=== PATIENT | female | born 1960 | race African-American/Black ===

== ENCOUNTER 2018-02-03 23:40 | Emergency (ER) | payer BC ==
[~2018-02-03] VITALS: Ht 177.8 cm; Wt 102.0 kg
[~2018-02-03 23:40] MED LIST: DIAZIDE
[2018-02-04] MEDS ORDERED: MORPHINE SULFATE 4 MG/ML CPJ (NOT FOR IM USE) IV ONE ×2 (00:30→02:15)
[2018-02-04] MEDS ORDERED: LIDOCAINE HCL 1% 20ML VIAL (Pyxis) INJ INFIL ONE (02:15)
[2018-02-04 04:35] VITALS: BP 153/79
[2018-02-16] MEDS ORDERED: LISI40TA4 MT (23:00)
[2018-02-16] MEDS ORDERED: LETR2.5T6 MT (23:00)
== END 2018-02-04 04:36 | disposition home or self-care (01) ==
LOC: ER 02-04 01:07
DX: S82.452A Displaced comminuted fracture of shaft of left fibula, initial encounter for closed fracture (principal); S82.392A Other fracture of lower end of left tibia, initial encounter for closed fracture; V48.4XXA Person boarding or alighting a car injured in noncollision transport accident, initial encounter; Y93.89 Activity, other specified; Y92.89 Other specified places as the place of occurrence of the external cause; I10 Essential (primary) hypertension; Z85.3 Personal history of malignant neoplasm of breast; Z90.13 Acquired absence of bilateral breasts and nipples
CPT/HCPCS: 27840; 73610; 73630; 96374; 96376; 99284; J2270; J3490

== ENCOUNTER → 2018-02-08 | Outpatient (CLI) | payer BC ==
[~2018-02-08] MED LIST changes: +BACITRACIN 50,000 UNITS/VIAL ONE; +BUPIVACAINE HCL/DEXTROSE/PF 0.75% 2ML AMP INJ ONE; +BUPIVACAINE HCL/PF 0.25% (2.5MG/ML) 10ML ONE; +LETR2.5T6 MT; +LISI40TA4 MT; +NORMAL SALINE 0.9% 10 ML SYR ONE; +PROPOFOL 10MG/ML 100ML 100 ML IV ONE; +ROPIVACAINE HCL 10MG/ML 20 ML VIAL EPI ONE
== END | disposition home or self-care (01) ==
LOC: RAD 15:12
PROVIDERS: ATTEND Orthopaedic Surgery
DX: S82.892A Other fracture of left lower leg, initial encounter for closed fracture (principal); X58.XXXA Exposure to other specified factors, initial encounter; Y93.89 Activity, other specified; Y92.89 Other specified places as the place of occurrence of the external cause; Y99.8 Other external cause status
CPT/HCPCS: 73610

== ENCOUNTER → 2018-04-12 | Outpatient (CLI) | payer BC ==
[~2018-04-12] MED LIST changes: -BACITRACIN 50,000 UNITS/VIAL ONE; -BUPIVACAINE HCL/DEXTROSE/PF 0.75% 2ML AMP INJ ONE; -BUPIVACAINE HCL/PF 0.25% (2.5MG/ML) 10ML ONE; -NORMAL SALINE 0.9% 10 ML SYR ONE; -PROPOFOL 10MG/ML 100ML 100 ML IV ONE; -ROPIVACAINE HCL 10MG/ML 20 ML VIAL EPI ONE
== END | disposition home or self-care (01) ==
LOC: RAD 10:46
PROVIDERS: ATTEND Orthopaedic Surgery
DX: S82.845D Nondisplaced bimalleolar fracture of left lower leg, subsequent encounter for closed fracture with routine healing (principal); M25.772 Osteophyte, left ankle; X58.XXXD Exposure to other specified factors, subsequent encounter
CPT/HCPCS: 73610

== ENCOUNTER → 2018-04-30 | Outpatient (CLI) | payer BC ==
[2018-04-30 14:55] LABS: HEMATOCRIT. 39.3 % (36.0-48.0); HEMOGLOBIN. 12.9 g/dL (12.0-16.0); MEAN CORPUSCULAR HEMOGLOBIN 30.8 pg (28.0-32.0); MEAN CORPUSCULAR VOLUME 93.7 fL (81.0-99.0); MEAN PLATELET VOLUME 8.2 fl (7.4-10.4); PLATELET 240 x1000/uL (130-400); RED BLOOD CELL COUNT 4.19 mill/uL (4.2-5.4); RED CELL DISTRIBUTION WIDTH 14.8 % (11.6-14.6)
[2018-04-30 15:00] LABS: CHLORIDE 105 mEq/L (98-107)
[2018-04-30 15:01] LABS: CLARITY URINE CLEAR (CLEAR); COLOR URINE YELLOW (YELLOW); KETONES URINE NEGATIVE (NEGATIVE); LEUKOCYTE ESTERASE URINE NEGATIVE (NEGATIVE); NITRITE URINE NEGATIVE (NEGATIVE); OCCULT BLOOD URINE NEGATIVE (NEGATIVE); PROTEIN URINE NEGATIVE (NEGATIVE); SPECIFIC GRAVITY URINE 1.018 (1.005-1.030)
[2018-04-30 15:02] LABS: PARTIAL THROMBOPLASTIN TIME 28.1 sec (23.4-31.0); PROTHROMBIN TIME 9.9 sec (9.1-11.1)
[2018-04-30 15:58] LABS: ATYPICAL LYMPHOCYTES 2; PLATELET ESTIMATE NORMAL
== END | disposition home or self-care (01) ==
LOC: RAD 14:14
PROVIDERS: ATTEND Orthopaedic Surgery
DX: Z01.818 Encounter for other preprocedural examination (principal); S82.892A Other fracture of left lower leg, initial encounter for closed fracture; I10 Essential (primary) hypertension; X58.XXXA Exposure to other specified factors, initial encounter; Y93.89 Activity, other specified; Y92.89 Other specified places as the place of occurrence of the external cause; Y99.8 Other external cause status
CPT/HCPCS: 36415; 71046; 73610; 80048

== ENCOUNTER 2018-05-13 05:20 | Day surgery (SDC) | payer BC ==
[~2018-05-13] VITALS: Ht 157.5 cm; Wt 98.0 kg
[2018-05-13] MEDS ORDERED: LACTATED RINGERS 1,000 ML IV SCH (06:00)
[2018-05-13] MEDS ORDERED: BUPIVACAINE/EPINEPH/PF 0.25%/0.0005 10ML ONE (07:13)
[2018-05-13] MEDS ORDERED: NORMAL SALINE 0.9% 10 ML SYR ONE (07:14)
[2018-05-13] MEDS ORDERED: BACITRACIN 50,000 UNITS/VIAL ONE (07:14)
[2018-05-13] MEDS ORDERED: VANCOMYCIN HCL 500 MG/VIAL ONE (07:14)
[2018-05-13] MEDS ORDERED: ROPIVACAINE HCL 10MG/ML 20 ML VIAL EPI ONE (07:48)
[2018-05-13] MEDS ORDERED: SUCCINYLCHOLINE CHLORIDE 200MG/10ML IV ONE (07:52)
[2018-05-13] MEDS ORDERED: FENTANYL CITRATE/PF 50MCG/ML 2ML VIAL ONE (07:52)
[2018-05-13] MEDS ORDERED: GLYCOPYRROLATE 0.2 MG/ML 2ML VIAL ONE (07:52)
[2018-05-13] MEDS ORDERED: LIDOCAINE HCL/PF 1% 10 MG/ML 5ML VIAL ONE (07:52)
[2018-05-13] MEDS ORDERED: PROPOFOL 200MG/20ML VIAL IV ONE (07:52)
[2018-05-13] MEDS ORDERED: MIDAZOLAM HCL 2 MG/2 ML VIAL ONE (07:52)
[2018-05-13] MEDS ORDERED: METOCLOPRAMIDE HCL 10MG/2ML VIAL ONE (07:54)
[2018-05-13] MEDS ORDERED: ONDANSETRON HCL 4MG/2ML INJ ONE (07:54)
[2018-05-13] MEDS ORDERED: BUPIVACAINE HCL/PF 0.25% (2.5MG/ML) 10ML ONE (07:55)
[2018-05-13] MEDS ORDERED: SODIUM CHLORIDE 0.9% 1,000 ML IV ONE (08:31)
[2018-05-13] MEDS ORDERED: HYDROMORPHONE HCL/PF 2MG/ML CPJ IV PRN (08:45)
[2018-05-13] MEDS ORDERED: MEPERIDINE HCL/PF 25MG/ML CPJ IV PRN (08:45)
[2018-05-13] MEDS ORDERED: ONDANSETRON HCL 4MG/2ML INJ IV PRN (08:45)
[2018-05-13] MEDS ORDERED: HYDROCODONE/ACETAMINOPHEN 10/325MG TABLET PO PRN (09:15)
== END 2018-05-13 10:35 | disposition home or self-care (01) ==
LOC: OR 05:20
PROVIDERS: ATTEND Orthopaedic Surgery
DX: T84.84XA Pain due to internal orthopedic prosthetic devices, implants and grafts, initial encounter (principal); Y83.8 Other surgical procedures as the cause of abnormal reaction of the patient, or of later complication, without mention of misadventure at the time of the procedure; Y92.89 Other specified places as the place of occurrence of the external cause; I10 Essential (primary) hypertension; E78.5 Hyperlipidemia, unspecified; Z90.10 Acquired absence of unspecified breast and nipple; Z95.0 Presence of cardiac pacemaker; Z85.3 Personal history of malignant neoplasm of breast; Z88.0 Allergy status to penicillin
CPT/HCPCS: 20680; 73600; 88300; J0330; J2250; J2405; J2704; J2765; J2795; J3010; J3490; 76000; J0171; J3370

== ENCOUNTER → 2022-04-24 | Outpatient (CLI) | payer BC ==
[~2022-04-24] MED LIST changes: -LETR2.5T6 MT; +LETR2.5T7 MT; +LISI40TA13 MT; -LISI40TA4 MT
== END | disposition home or self-care (01) ==
LOC: NM 07:25
PROVIDERS: ATTEND Internal Medicine Clinical Cardiac Electrophysiology
DX: I44.1 Atrioventricular block, second degree (principal)
CPT/HCPCS: 78452; 93017; A9500

== ENCOUNTER → 2024-01-04 | Outpatient (CLI) | payer BC | END | disposition home or self-care (01) | LOC: CARD 08:02 | PROVIDERS: ATTEND Internal Medicine Clinical Cardiac Electrophysiology | DX: I44.1 Atrioventricular block, second degree (principal); I10 Essential (primary) hypertension; Z95.0 Presence of cardiac pacemaker | CPT/HCPCS: 93306 ==